=== PATIENT | male | born 2000 | race Caucasian/White ===

== ENCOUNTER 2020-08-26 14:58 | Emergency (ER) | payer OTHER, SELFPAY ==
[2020-08-26 15:00] VITALS: BP 143/82; PULSE 89; RESP 17; TEMP 36.2; O2SAT 98; BMI 25.1
--- NOTE | 2020-08-26 15:18 | ED.DCSUM_ITS ---
History of Present Illness Chief Complaint: GI Bleed Informant: Patient Onset: Today Narrative: 19-year-old male with no significant past medical history presents with concern for rectal bleeding. States it was one episode today. States that was on the tissue paper as well as his stool. States that he had some mild amount of pain when moving his bowels. States that this is happened prior but resolved itself. Denies any rectal trauma. Denies any lightheadedness, dizziness, chest pain, shortness of breath. Past Medical History - Allergies and Home Meds Allergies/Adverse Reactions: Allergies No Known Allergies Allergy (Verified 08/26/20 14:59) Primary Care Physician: Patrizia Lagunas MD [Primary Care Provider] - Prior records reviewed: Yes Past Medical History: None Surgical History: no surgical history Lives: Alone Smoking Status: Never smoker Alcohol: None Drugs: None Review of Systems General: Denies: Chills, Fever, Sweats Eyes: Denies: Visual changes - bilaterally, Diplopia ENT: Denies: Rhinorrhea, Sore throat Cardiovascular: Denies: Chest pain, Palpitations Respiratory: Denies: Dyspnea, Cough, Dyspnea on exertion Gastrointestinal: Reports: Hematochezia. Denies: Abdominal pain, Nausea, Vom iting, Diarrhea, Melena Genitourinary: Denies: Dysuria, Hematuria, Frequency Musculoskeletal: Denies: Back pain, Extremity Pain Skin: Denies: Rash, Wounds Neurological: Denies: Headache, Weakness, Numbness Physical Exam Vital Signs/Narrative: Vital Signs Temp Pulse Resp BP Pulse Ox 08/26/20 15:00 97.1 F L 89 17 143/82 H 98 Inital Vital Signs reviewed: Yes General: Well nourished, Well developed, No Acute Distress Head: Normocephalic, Atraumatic Eyes: Perrl, EOMI ENT: Moist mucous membranes, No rhinorrhea Neck: Supple, Nontender Cardiovascular: Regular rate, Regular rhythm, No murmurs Respiratory: No distress, CTA bilaterally, Chest nontender Abdomen: Soft, Nontender, Nondistended, Normal bowel sounds Rectal: - - Anal fissue at the 7 o clock position. Back: Nontender, Normal Inspection Extremities: Nontender, No edema Skin: Normal color, No rash Neurological: Alert, Oriented x3, Cranial nerves II-XII grossly intact, Normal Strength, Normal Sensation Psychological: Normal affect, Normal Mood Diagnostic/Tx/Re-eval - Medical Decision Making Appears well nontoxic. Evidence of anal fissure. Patient will be started on Dulcolax and advised on p.o. hydration. Advised on sitz bath's. Asked to return for new or worsening symptoms. Discharged home in stable condition. ED Disposition - Plan for ED Patient: Disposition: Home or Assisted Living Instructions: ED Fissure Anal Ch Prescriptions: Docusate Sodium 100 mg PO BID #14 cap Prescription Printed Referrals: Patrizia Lagunas MD [Primary Care Provider] -
== END 2020-08-26 15:44 | disposition home or self-care (01) ==
LOC: ED 15:36
PROVIDERS: Emergency Provider Emergency Medicine; PCP Pediatrics
DX: K60.2 Anal fissure, unspecified (principal)
CPT/HCPCS: 99282

== ENCOUNTER 2021-11-02 09:28 | Emergency (ER) | payer OTHER, SELFPAY ==
[2021-11-02 09:29] VITALS: BP 131/82; PULSE 85; RESP 18; TEMP 36.6; O2SAT 100; BMI 27.8
--- NOTE | 2021-11-02 09:46 | CT_ITS ---
STUDY: CT BRAIN WITHOUT CONTRAST REASON FOR EXAM: Male, 20 years old. Injury/Pain RADIATION DOSAGE (If Supplied By Facility): CTDIvol = ( 44.99 ) mGy, DLP = ( 779.24 ) mGycm TECHNIQUE: Transaxial CT imaging of the brain was performed without administration of intravenous contrast material. Individualized dose optimization techniques were used for this CT. COMPARISON: No relevant priors. FINDINGS: Normal soft tissue structures. Normal calvarium. Normal size ventricles and extra-axial spaces for the patient''s age. Normal white matter tracts of the cerebral hemispheres. Normal basal ganglia and thalami. Normal brainstem. Normal cerebellum. There is no intracranial hemorrhage. There are no findings of an acute ischemic infarction. Normal visualized paranasal sinuses. CT/Brain/Head without Contrast IMPRESSION: Normal unenhanced CT scan of the brain. Electronically Signed: Kumar Cordero MD at 10:11 EST ,
--- NOTE | 2021-11-02 09:46 | CT_ITS ---
STUDY: CT CERVICAL SPINE WITHOUT CONTRAST REASON FOR EXAM: Male, 20 years old. Injury/Pain RADIATION DOSAGE (If Supplied By Facility): CTDIvol = ( 22.46 ) mGy, DLP = ( 478.09 ) mGycm TECHNIQUE: High resolution transaxial imaging was performed without contrast material. Sagittal and coronal images were reconstructed. Individualized dose optimization techniques were used for this CT. COMPARISON: None FINDINGS: Normal craniovertebral junction. Normal anterior atlantoaxial articulation. Normal odontoid process. There is straightening of the normal cervical lordosis. Normal vertebral bodies and posterior osseous elements. C2-3: Normal endplates. Normal disc height and morphology. Normal central canal and intervertebral neuroforamina. C3-4: Normal endplates. Normal disc height and morphology. Normal central canal and intervertebral neuroforamina. C4-5: Normal endplates. Normal disc height and morphology. Normal central canal and intervertebral neuroforamina. C5-6: Normal endplates. Normal disc height and morphology. Normal central canal and intervertebral neuroforamina. C6-7: Normal endplates. Normal disc height and morphology. Normal central canal and intervertebral neuroforamina. C7-T1: Normal endplates. Normal disc height and morphology. Normal central canal and intervertebral neuroforamina. Normal visualized soft tissue structures. CT/Spine Cervical without Contras IMPRESSION: There is straightening of the normal cervical lordosis. Electronically Signed: Kumar Cordero MD at 10:12 EST ,
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
[2021-11-02] MEDS: Ibuprofen 600 MG Tablet PO (10:40)
[2021-11-02] MEDS: cycloBENZAPRine HCl 10 MG Tablet PO (10:40)
[2021-11-02 10:43] VITALS: RESP 14
== END 2021-11-02 10:44 | disposition home or self-care (01) ==
PROVIDERS: Emergency Provider Emergency Medicine; Visit Provider Emergency Medicine
DX: S00.81XA Abrasion of other part of head, initial encounter (principal); S60.511A Abrasion of right hand, initial encounter; S60.811A Abrasion of right wrist, initial encounter; M62.838 Other muscle spasm; V43.52XA Car driver injured in collision with other type car in traffic accident, initial encounter; W22.11XA Striking against or struck by driver side automobile airbag, initial encounter; Y93.9 Activity, unspecified; Y92.9 Unspecified place or not applicable; F17.290 Nicotine dependence, other tobacco product, uncomplicated
CPT/HCPCS: 70450; 72125; 99283

== ENCOUNTER → 2025-01-17 | Outpatient (CLI) | payer OTHER, SELFPAY ==
--- NOTE | 2025-01-17 09:22 | US_ITS ---
EXAM: Ultrasound of the right side of the neck. CLINICAL HISTORY: Palpable lump in the right submandibular region. COMPARISON: None TECHNIQUE: Sonographic evaluation of the right submandibular region was performed. FINDINGS: There is a 2.7 cm x 2.2 cm 1.2 cm well-defined hypodense nodule corresponds with the palpable lump. This most likely represents an inflamed submandibular lymph node. There is also evidence of incidental note of a 1.3 cm x 1 cm x 0.4 cm benign-appearing lymph node in the left cervical region. US/Head/Neck Soft Tissue IMPRESSION: The palpable lump corresponds to an inflamed/enlarged right submandibular lymph node measuring 2.7 cm x 2.2 cm 1.2 cm. Follow-up recommended. Reading Location: [id number]
== END | disposition home or self-care (01) ==
DX: R22.1 Localized swelling, mass and lump, neck (principal)
CPT/HCPCS: 76536

== ENCOUNTER 2025-02-25 14:50 | Outpatient (CLI) | payer OTHER, SELFPAY ==
--- NOTE | 2025-02-25 14:00 | FLU_PTH ---
PATIENT: GUILLERMO STERN LOC: [facility] U#:[id number] AGE/SX: 24/M ROOM: RE02/25/[address]: Dr. Davis Vail MD : [id number] BED: DIS: 02/25/2025 SPEC #: [id number] RECD: 02/25/25 14:46 STATUS: NIR REMally #: [id number] LUKASZ: 02/25/25 14:[address]: Davis Vail DEPT: CYTOLOGY RECD BY: Renata Hubbard ENTERED: 02/26/25 08:50 SP TYPE: Fluid OTHR DR: No Primary Care Phys Tissues: Lymph node, NOS Procedures: Special Stain Group II Surgery Specimen Level IV Cytospin Fluid Cytology Other HEADER OPERATION: Fine needle aspiration, level 5 cervical lymph node PRE-OP DIAGNOSIS: Enlargement of submandibular gland TISSUE SUBMITTED: A- Cervical lymph node fluid for cytology DIAGNOSIS CYTOLOGY A. Cervical lymph node, fna: * Polymorphous appearing lymphocytes (See note) Note: Correlation with flow cytometric analysis is recommended as clinically indicated. CYTOLOGY STUDY Slides are reviewed. CYTOLOGY GROSS A. Received is 40 ml of pink-cloudy sterile saline fluid and 4 smears labeled with the patient's name and and designated per the requisition as Left level 5 cervical lymph node. Submitted for cytology and cell block preparation. Mr 02/26/2025 CPT: 00760
== END 2025-02-25 23:59 | disposition home or self-care (01) ==
LOC: LABSPEC 14:53
PROVIDERS: Referring Provider Surgery; Visit Provider Surgery
DX: R59.0 Localized enlarged lymph nodes (principal)
CPT/HCPCS: 88108; 88161; 88305; 88313